=== PATIENT | female | born 1990 | race Two or more races ===

== ENCOUNTER 2019-12-15 10:58 | Outpatient (RCR) | payer MEDICARE, SELFPAY | END 2019-12-17 23:59 | LOC: EMPH 10:58 | PROVIDERS: Referring Provider Family Medicine Geriatric Medicine; Visit Provider Family Medicine Geriatric Medicine | DX: Z03.818 Encounter for observation for suspected exposure to other biological agents ruled out (principal) | CPT/HCPCS: 87426 ==